=== PATIENT | female | born 1970 | race Hispanic/Latino ===

== ENCOUNTER 2018-03-01 06:13 | Day surgery (SDC) | payer OTHER ==
[2018-02-27 16:31] VITALS: BP 108/52
[2018-02-27 16:54] LABS: CREATININE 0.8 mg/dL (0.5-1.5)
[2018-03-01] VITALS (17 sets, daily range): BP systolic 93–131; BP diastolic 51–74
[~2018-03-01] VITALS: Ht 160 cm; Wt 87.1 kg
[~2018-03-01 06:13] MED LIST: ATOR40TA71 PO; BUSP15TA3 PO; CHOL500050 PO; FLUO40CA49 PO; LEVE10006 PO; METF500S7 PO; OXCA600T37 PO; QUET100T70 PO; SOLI5 PO; TOPI100T37 PO; TYL2 PO
[2018-03-01] MEDS ORDERED: SODIUM CHLORIDE 0.9% 1000ML 1,000 ML IV ONE (06:35)
[2018-03-01] MEDS ORDERED: LIDOCAINE PF 2% 5ML ABBOJECT ONE (06:42)
[2018-03-01] MEDS ORDERED: ONDANSETRON HCL 4 MG/2 ML VIAL ONE (06:42)
[2018-03-01] MEDS ORDERED: PROPOFOL 10 MG/ML 20ML VIAL IV ONE ×2 (06:42→11:02)
[2018-03-01] MEDS ORDERED: FAMOTIDINE/PF 20 MG/2 ML VIAL IV ONE (06:55)
[2018-03-01] MEDS: CEFTRIAXONE SODIUM 1 GM IVP SCH ×2 (07:00→10:32)
[2018-03-01] MEDS ORDERED: MIDAZOLAM HCL 1 MG/ML 5ML VIAL ONE (07:51)
[2018-03-01] MEDS ORDERED: IOHEXOL-350 50ML VIAL IV ONE (09:33)
[2018-03-01] MEDS ORDERED: FENTANYL CITRATE PF 50 MCG/1 ML 5ML AMP IV ONE (10:35)
[2018-03-01] MEDS ORDERED: DEXAMETHASONE SOD PHOSPHATE 10MG/ML 1ML VIAL ONE (10:35)
[2018-03-01] MEDS ORDERED: EPHEDRINE SULFATE 50 MG/ML AMPULE ONE (10:53)
[2018-03-01] MEDS ORDERED: PHENAZOPYRIDINE HCL 200 MG TABLET ONE (13:22)
== END 2018-03-01 14:15 | disposition home or self-care (01) ==
LOC: DAH 06:13
PROVIDERS: ATTEND Urology
DX: N20.0 Calculus of kidney (principal); E11.9 Type 2 diabetes mellitus without complications; F31.9 Bipolar disorder, unspecified; Z98.890 Other specified postprocedural states; Z79.899 Other long term (current) drug therapy; Z87.891 Personal history of nicotine dependence; R56.9 Unspecified convulsions; K21.9 Gastro-esophageal reflux disease without esophagitis; Z79.84 Long term (current) use of oral hypoglycemic drugs
CPT/HCPCS: 36415; 50590; 52310; 74420; 80048; 82360; 82948 ×2; 84702; 88300; A4218; A4344; A4358; A4510; A4600; A4930; C1758; C1769; J0696; J1100; J2001; J2250; J2405; J2704 ×2; J3010; J3490 ×2; J7030; Q9967